=== PATIENT | female | born 1975 | race Caucasian/White ===

== ENCOUNTER 2017-02-05 10:18 | Emergency (ER) | payer OTHER ==
[~2017-02-05] VITALS: Ht 170.2 cm; Wt 87.5 kg
[2017-02-05 12:12] VITALS: BP 163/100
== END 2017-02-05 12:12 | disposition home or self-care (01) ==
LOC: ED 10:18
DX: F41.0 Panic disorder [episodic paroxysmal anxiety] (principal); Z88.0 Allergy status to penicillin
CPT/HCPCS: J2060

== ENCOUNTER 2017-05-29 14:17 | Inpatient (IN) | payer OTHER ==
[~2017-05-29] VITALS: Ht 170.2 cm; Wt 80.3 kg
[2017-05-29 14:27] VITALS: Ht 170.2 cm; Wt 80.3 kg
[2017-05-29 15:21] LABS: BASOPHIL % 0.4 % (0-2); PLATELET COUNT 302 x10^3mcL (130-400)
[2017-05-29 15:26] LABS: RED CELL DISTRIBUTION WIDTH 15.9 % (11.5-14.5)
[2017-05-29 15:30] LABS: CALCIUM 8.5 mg/dL (8.5-10.1); CARBON DIOXIDE 24.6 mmol/L (21-32); CHLORIDE SERUM 99 mmol/L (98-107); CREATININE SERUM 0.8 mg/dL (0.6-1.0); GFR1 > 60 mL/min; GLUCOSE SERUM 145 mg/dL (74-106); POTASSIUM SERUM 3.4 mmol/L (3.5-5.1); SODIUM SERUM 138 mmol/L (136-145)
[2017-05-29 15:34] LABS: ALKALINE PHOSPHATASE 105 U/L (46-116); ALT/SGPT 73 U/L (14-59); AST/SGOT 136 U/L (15-37); BILIRUBIN TOTAL 0.6 mg/dL (0.20-1.00); TOTAL PROTEIN, SERUM 7.1 g/dL (6.4-8.2)
[2017-05-29 15:38] LABS: ALBUMIN 3.3 g/dL (3.4-5.0)
[2017-05-29] MEDS ORDERED: LEVO-T25 MCG PO (16:17)
[2017-05-29] MEDS ORDERED: COZAAR100 MG PO (16:18)
[2017-05-29] MEDS ORDERED: CYMBALTA30 M1 PO (16:18)
[2017-05-29 17:40] VITALS: BP 167/102
[2017-05-29 17:44] VITALS: BP 167/102
[2017-05-29 18:16] LABS: MAGNESIUM 1.2 mg/dL (1.8-2.4); PHOSPHOROUS 3.7 mg/dL (2.5-4.9)
[2017-05-29 18:35] LABS: T3 TOTAL 1.23 ng/mL
[2017-05-29 19:00] LABS: FREE T4 0.77 ng/dL (0.76-1.46); T4(THYROXINE) 5.3 ug/dL (4.7-13.3)
[2017-05-29 21:04] VITALS: BP 171/104
[2017-05-29 22:40] LABS: UA SPECIFIC GRAVITY >=1.030 (1.005-1.035); microscopic required? YES; urine erythrocyte NEGATIVE (NEGATIVE)
[2017-05-29 22:49] VITALS: BP 163/101
[2017-05-29 22:52] LABS: AMPHETAMINE QUAL UR NONE DETECTED (NEG <=1000)
[2017-05-30] VITALS (7 sets, daily range): BP systolic 133–157; BP diastolic 77–104
[2017-05-30 09:10] LABS: BASOPHIL % 0.7 % (0-2); PLATELET COUNT 288 x10^3mcL (130-400)
[2017-05-30 09:12] LABS: RED CELL DISTRIBUTION WIDTH 16.1 % (11.5-14.5)
[2017-05-30 09:15] LABS: CALCIUM 7.9 mg/dL (8.5-10.1); CARBON DIOXIDE 25.1 mmol/L (21-32); CHLORIDE SERUM 103 mmol/L (98-107); CHOLESTEROL 188 mg/dL (<200); CREATININE SERUM 0.8 mg/dL (0.6-1.0); GFR1 > 60 mL/min; GLUCOSE SERUM 139 mg/dL (74-106); POTASSIUM SERUM 3.5 mmol/L (3.5-5.1); SODIUM SERUM 138 mmol/L (136-145); TRIGLYCERIDES 94 mg/dL (<150)
[2017-05-30 09:17] LABS: CHOLESTEROL/HDL RATIO 2.1; HDL CHOLESTEROL 89 mg/dL (40-60)
[2017-05-31 06:37] VITALS: BP 146/96
[2017-05-31 07:34] LABS: BASOPHIL % 0.7 % (0-2); PLATELET COUNT 196 x10^3mcL (130-400)
[2017-05-31 07:47] LABS: CALCIUM 8.1 mg/dL (8.5-10.1); CARBON DIOXIDE 25.9 mmol/L (21-32); CHLORIDE SERUM 109 mmol/L (98-107); CREATININE SERUM 0.6 mg/dL (0.6-1.0); GFR1 > 60 mL/min; GLUCOSE SERUM 86 mg/dL (74-106); MAGNESIUM 1.5 mg/dL (1.8-2.4); PHOSPHOROUS 3.5 mg/dL (2.5-4.9); POTASSIUM SERUM 3.8 mmol/L (3.5-5.1); SODIUM SERUM 142 mmol/L (136-145)
[2017-05-31 08:01] LABS: RED CELL DISTRIBUTION WIDTH 15.5 % (11.5-14.5)
[2017-05-31 10:07] VITALS: BP 131/78
[2017-05-31 10:45] VITALS: BP 131/78
[2017-05-31] MEDS ORDERED: DULOXETINE HYDR60 MG PO (13:10)
== END 2017-05-31 18:22 | disposition home or self-care (01) | DRG 48 ==
LOC: ED 14:17 → DU 16:17
PROVIDERS: Emergency Medicine; Family Medicine; Student in an Organized Health Care Education/Training Program
DX: G90.8 Other disorders of autonomic nervous system (principal); J96.00 Acute respiratory failure, unspecified whether with hypoxia or hypercapnia; N17.0 Acute kidney failure with tubular necrosis; E43 Unspecified severe protein-calorie malnutrition; G61.0 Guillain-Barre syndrome; D75.1 Secondary polycythemia; E87.1 Hypo-osmolality and hyponatremia; E86.0 Dehydration; E83.51 Hypocalcemia; I10 Essential (primary) hypertension; Z88.0 Allergy status to penicillin; E03.9 Hypothyroidism, unspecified; Z90.49 Acquired absence of other specified parts of digestive tract; E87.6 Hypokalemia; I16.0 Hypertensive urgency; G62.9 Polyneuropathy, unspecified; E80.6 Other disorders of bilirubin metabolism; E78.5 Hyperlipidemia, unspecified; A08.4 Viral intestinal infection, unspecified
CPT/HCPCS: 83880; 84439; J0360; J1885; J7030; Q0092

== ENCOUNTER 2017-06-24 08:52 | Emergency (ER) | payer OTHER ==
[~2017-06-24] VITALS: Ht 170.2 cm; Wt 81.9 kg
[~2017-06-24 08:52] MED LIST: COZAAR100 MG PO; CYMBALTA30 M1 PO; DULOXETINE HYDR60 MG PO; LEVO-T25 MCG PO
[2017-06-24 09:06] VITALS: Ht 170.2 cm; Wt 81.9 kg
[2017-06-24 10:37] LABS: BASOPHIL % 0.2 % (0-2); PLATELET COUNT 200 x10^3mcL (130-400)
[2017-06-24 10:41] LABS: RED CELL DISTRIBUTION WIDTH 15.4 % (11.5-14.5)
[2017-06-24 10:54] LABS: CALCIUM 8.6 mg/dL (8.5-10.1); CARBON DIOXIDE 28.2 mmol/L (21-32); CHLORIDE SERUM 101 mmol/L (98-107); CREATININE SERUM 0.8 mg/dL (0.6-1.0); GFR1 > 60 mL/min; GLUCOSE SERUM 145 mg/dL (74-106); POTASSIUM SERUM 3.9 mmol/L (3.5-5.1); SODIUM SERUM 140 mmol/L (136-145)
[2017-06-24 10:58] LABS: ALBUMIN 3.7 g/dL (3.4-5.0); ALKALINE PHOSPHATASE 96 U/L (46-116); ALT/SGPT 51 U/L (14-59); AMYLASE 25 U/L (25-115); AST/SGOT 77 U/L (15-37); BILIRUBIN TOTAL 0.9 mg/dL (0.20-1.00); LIPASE 86 IU/L (73-393); TOTAL PROTEIN, SERUM 7.7 g/dL (6.4-8.2)
[2017-06-24 11:41] VITALS: BP 142/116
== END 2017-06-24 11:46 | disposition home or self-care (01) ==
LOC: ED 08:52
PROVIDERS: Emergency Medicine
DX: R10.9 Unspecified abdominal pain (principal); R11.2 Nausea with vomiting, unspecified; R19.7 Diarrhea, unspecified; Z90.49 Acquired absence of other specified parts of digestive tract; Z88.0 Allergy status to penicillin; Z90.89 Acquired absence of other organs
CPT/HCPCS: 83880; J1885; J2060; J7030

== ENCOUNTER 2017-10-02 07:31 | Inpatient (IN) | payer OTHER ==
[~2017-10-02] VITALS: Ht 170.2 cm; Wt 92.2 kg
[2017-10-02 07:54] VITALS: Ht 170.2 cm; Wt 92.2 kg
[2017-10-02 09:22] LABS: CALCIUM 7.8 mg/dL (8.5-10.1); CARBON DIOXIDE 20.2 mmol/L (21-32); CHLORIDE SERUM 95 mmol/L (98-107); CREATININE SERUM 0.8 mg/dL (0.6-1.0); GFR1 > 60 mL/min; GLUCOSE SERUM 78 mg/dL (74-106); POTASSIUM SERUM 3.4 mmol/L (3.5-5.1); SODIUM SERUM 133 mmol/L (136-145)
[2017-10-02 09:34] LABS: ALKALINE PHOSPHATASE 468 U/L (46-116); ALT/SGPT 207 U/L (14-59); AST/SGOT 733 U/L (15-37); CHOLESTEROL 154 mg/dL (<200); LIPASE 87 IU/L (73-393); MAGNESIUM 1.5 mg/dL (1.8-2.4)
[2017-10-02 09:42] LABS: ALBUMIN 1.9 g/dL (3.4-5.0); TOTAL PROTEIN, SERUM 6.1 g/dL (6.4-8.2)
[2017-10-02 09:45] LABS: AMYLASE 15 U/L (25-115); BILIRUBIN TOTAL 13.5 mg/dL (0.20-1.00); HDL CHOLESTEROL 7 mg/dL (40-60); T4(THYROXINE) 4.4 ug/dL (4.7-13.3)
[2017-10-02 09:51] LABS: BASOPHIL % 0.5 % (0-2); PLATELET COUNT 146 x10^3mcL (130-400)
[2017-10-02 09:52] LABS: RED CELL DISTRIBUTION WIDTH 16.4 % (11.5-14.5)
[2017-10-02 10:41] LABS: UA SPECIFIC GRAVITY 1.025 (1.005-1.035); microscopic required? YES; urine erythrocyte TRACE (NEGATIVE)
[2017-10-02 11:19] LABS: AMPHETAMINE QUAL UR NONE DETECTED (NEG <=1000)
[2017-10-02] MEDS ORDERED: PROTONIX40 MG PO (11:40)
[2017-10-02 12:13] LABS: CHOLESTEROL 160 mg/dL (<200); CHOLESTEROL/HDL RATIO 22.9; HDL CHOLESTEROL 7 mg/dL (40-60); PHOSPHOROUS 2.9 mg/dL (2.5-4.9); TRIGLYCERIDES 472 mg/dL (<150)
[2017-10-02 12:23] LABS: T3 TOTAL 0.37 ng/mL
[2017-10-02 12:26] LABS: FREE T4 1.22 ng/dL (0.76-1.46); FREE THYROXINE INDEX 2.2 ug/dL (1.4-4.5); T4(THYROXINE) 5.2 ug/dL (4.7-13.3)
[2017-10-02 13:22] VITALS: BP 132/82
[2017-10-02 14:03] VITALS: BP 124/84
[2017-10-02 17:05] VITALS: BP 97/57
[2017-10-02 21:00] VITALS: BP 112/63
[2017-10-02 22:13] LABS: BILIRUBIN DIRECT 11.27 mg/dL (0.0-0.2)
[2017-10-02 22:15] LABS: BILIRUBIN TOTAL 13.1 mg/dL (0.20-1.00)
[2017-10-03 05:45] VITALS: BP 114/69
[2017-10-03 05:58] LABS: MAGNESIUM 2.1 mg/dL (1.8-2.4); PHOSPHOROUS 3.3 mg/dL (2.5-4.9)
[2017-10-03 06:08] LABS: ALKALINE PHOSPHATASE 374 U/L (46-116); ALT/SGPT 160 U/L (14-59); AST/SGOT 565 U/L (15-37); CALCIUM 7.4 mg/dL (8.5-10.1); CARBON DIOXIDE 25.7 mmol/L (21-32); CHLORIDE SERUM 97 mmol/L (98-107); CREATININE SERUM 0.9 mg/dL (0.6-1.0); GFR1 > 60 mL/min; GLUCOSE SERUM 70 mg/dL (74-106); POTASSIUM SERUM 4.3 mmol/L (3.5-5.1); SODIUM SERUM 135 mmol/L (136-145)
[2017-10-03 06:25] LABS: ALBUMIN 1.7 g/dL (3.4-5.0); TOTAL PROTEIN, SERUM 4.8 g/dL (6.4-8.2)
[2017-10-03 06:27] LABS: BILIRUBIN TOTAL 13.1 mg/dL (0.20-1.00)
[2017-10-03 07:11] LABS: BASOPHIL % 3.3 % (0-2); PLATELET COUNT 126 x10^3mcL (130-400); RED CELL DISTRIBUTION WIDTH 16.7 % (11.5-14.5)
[2017-10-03 08:23] VITALS: BP 96/55
[2017-10-03 08:45] VITALS: BP 101/59
[2017-10-03 11:27] VITALS: BP 114/68
[2017-10-03 16:47] VITALS: BP 110/60
[2017-10-03 21:21] VITALS: BP 102/63
[2017-10-04 05:20] VITALS: BP 104/60
[2017-10-04 06:22] LABS: BASOPHIL % 0.3 % (0-2)
[2017-10-04 06:26] LABS: CALCIUM 7.5 mg/dL (8.5-10.1); CARBON DIOXIDE 25.6 mmol/L (21-32); CHLORIDE SERUM 102 mmol/L (98-107); CREATININE SERUM 0.9 mg/dL (0.6-1.0); GFR1 > 60 mL/min; GLUCOSE SERUM 63 mg/dL (74-106); PHOSPHOROUS 2.4 mg/dL (2.5-4.9); POTASSIUM SERUM 3.4 mmol/L (3.5-5.1); SODIUM SERUM 134 mmol/L (136-145)
[2017-10-04 06:44] LABS: PLATELET COUNT 120 x10^3mcL (130-400); RED CELL DISTRIBUTION WIDTH 16.3 % (11.5-14.5)
[2017-10-04 08:06] LABS: BILIRUBIN DIRECT 11.66 mg/dL (0.0-0.2)
[2017-10-04 08:17] LABS: ALBUMIN 1.5 g/dL (3.4-5.0); TOTAL PROTEIN, SERUM 4.7 g/dL (6.4-8.2)
[2017-10-04 08:18] LABS: BILIRUBIN TOTAL 13.71 mg/dL (0.20-1.00)
[2017-10-04 08:24] VITALS: BP 95/57
[2017-10-04 12:21] VITALS: BP 102/64
[2017-10-04 16:30] VITALS: BP 105/72
[2017-10-04 20:42] VITALS: BP 104/65
[2017-10-05 04:29] VITALS: BP 113/78
[2017-10-05 06:25] LABS: BASOPHIL % 0.5 % (0-2)
[2017-10-05 06:41] LABS: ALKALINE PHOSPHATASE 325 U/L (46-116); ALT/SGPT 134 U/L (14-59); AST/SGOT 408 U/L (15-37); CALCIUM 7.7 mg/dL (8.5-10.1); CARBON DIOXIDE 24.3 mmol/L (21-32); CHLORIDE SERUM 105 mmol/L (98-107); CREATININE SERUM 0.8 mg/dL (0.6-1.0); GFR1 > 60 mL/min; GLUCOSE SERUM 66 mg/dL (74-106); POTASSIUM SERUM 4.4 mmol/L (3.5-5.1); SODIUM SERUM 138 mmol/L (136-145)
[2017-10-05 07:12] LABS: PLATELET COUNT 96 x10^3mcL (130-400)
[2017-10-05 07:31] LABS: ALBUMIN 1.4 g/dL (3.4-5.0); TOTAL PROTEIN, SERUM 4.8 g/dL (6.4-8.2)
[2017-10-05 07:32] LABS: BILIRUBIN TOTAL 15.5 mg/dL (0.20-1.00)
[2017-10-05 08:49] VITALS: BP 96/50
[2017-10-05 13:51] VITALS: BP 112/76
[2017-10-05 17:05] VITALS: BP 127/86
[2017-10-05 20:34] VITALS: BP 97/63
[2017-10-06 04:33] VITALS: BP 103/71
[2017-10-06 06:43] LABS: ALKALINE PHOSPHATASE 344 U/L (46-116); ALT/SGPT 138 U/L (14-59); AST/SGOT 336 U/L (15-37); CARBON DIOXIDE 25.8 mmol/L (21-32); CHLORIDE SERUM 103 mmol/L (98-107); GFR1 > 60 mL/min; GLUCOSE SERUM 135 mg/dL (74-106); PHOSPHOROUS 2.7 mg/dL (2.5-4.9); POTASSIUM SERUM 3.8 mmol/L (3.5-5.1); SODIUM SERUM 138 mmol/L (136-145)
[2017-10-06 06:49] LABS: ALBUMIN 1.5 g/dL (3.4-5.0); TOTAL PROTEIN, SERUM 5.2 g/dL (6.4-8.2)
[2017-10-06 06:51] LABS: BILIRUBIN TOTAL 17.5 mg/dL (0.20-1.00)
[2017-10-06 07:53] LABS: PLATELET COUNT 135 x10^3mcL (130-400)
[2017-10-06 08:22] VITALS: BP 121/83
[2017-10-06 08:51] LABS: BAND NEUTROPHIL 4 % (0-10); BASOPHIL 0 % (0-2); MONOCYTE 4 % (0-7); SEGMENTED NEUTROPHILS 77 % (37-75)
[2017-10-06 08:52] LABS: PLATELET MORPHOLOGY PLATELETS DECREASED; rbc morphology (normal/abnorm) ABNORMAL (NORMAL)
[2017-10-06 12:00] VITALS: BP 120/83
[2017-10-06 16:45] VITALS: BP 113/92
[2017-10-06 19:57] VITALS: BP 111/78
[2017-10-07 04:50] VITALS: BP 128/91
[2017-10-07 06:22] LABS: CARBON DIOXIDE 22.8 mmol/L (21-32); CREATININE SERUM 1.9 mg/dL (0.6-1.0); PHOSPHOROUS 3.3 mg/dL (2.5-4.9); POTASSIUM SERUM 3.5 mmol/L (3.5-5.1)
[2017-10-07 06:53] LABS: ALBUMIN 1.4 g/dL (3.4-5.0); TOTAL PROTEIN, SERUM 4.9 g/dL (6.4-8.2)
[2017-10-07 06:55] LABS: BILIRUBIN TOTAL 16.84 mg/dL (0.20-1.00)
[2017-10-07 07:10] LABS: PLATELET COUNT 138 x10^3mcL (130-400)
[2017-10-07 07:28] LABS: BASOPHIL % 0 % (0-2); RED CELL DISTRIBUTION WIDTH 17.1 % (11.5-14.5)
[2017-10-07 09:30] VITALS: BP 118/89
[2017-10-07 13:25] VITALS: BP 123/85
[2017-10-07 16:16] VITALS: BP 101/65
[2017-10-07 20:08] VITALS: BP 115/80
[2017-10-08 05:17] VITALS: BP 115/80
[2017-10-08 06:29] LABS: BASOPHIL % 0.1 % (0-2); PLATELET COUNT 153 x10^3mcL (130-400)
[2017-10-08 06:42] LABS: CALCIUM 7.8 mg/dL (8.5-10.1); CARBON DIOXIDE 22.3 mmol/L (21-32); CREATININE SERUM 1.6 mg/dL (0.6-1.0); POTASSIUM SERUM 3.4 mmol/L (3.5-5.1)
[2017-10-08 06:46] LABS: ALBUMIN 1.3 g/dL (3.4-5.0); BILIRUBIN TOTAL 15.71 mg/dL (0.20-1.00); TOTAL PROTEIN, SERUM 4.4 g/dL (6.4-8.2)
[2017-10-08 06:50] LABS: RED CELL DISTRIBUTION WIDTH 17.8 % (11.5-14.5)
[2017-10-08] MEDS ORDERED: XIFAXAN550 M1 PO (07:37)
[2017-10-08] MEDS ORDERED: PROZ10 PO (07:38)
[2017-10-08] MEDS ORDERED: ALD25 PO (07:38)
[2017-10-08] MEDS ORDERED: LAC30L PO (07:39)
[2017-10-08] MEDS ORDERED: LASIX40 MG PO (07:40)
[2017-10-08] MEDS ORDERED: PREDNISONE10 M1 PO (07:44)
[2017-10-08 08:15] VITALS: BP 120/88
[2017-10-08 11:15] VITALS: BP 120/88
[2017-10-08 12:00] VITALS: BP 122/91
[2017-10-08] MEDS ORDERED: FOL1 PO (13:17)
[2017-10-08] MEDS ORDERED: MULTI-VITAMINS1 TAB PO (13:18)
[2017-10-08] MEDS ORDERED: THI100 PO (13:18)
== END 2017-10-08 16:30 | disposition home health service (06) | DRG 279 ==
LOC: ED 07:31 → DU 10:50
PROVIDERS: Emergency Medicine; Family Medicine
DX: K72.90 Hepatic failure, unspecified without coma (principal); N17.0 Acute kidney failure with tubular necrosis; E43 Unspecified severe protein-calorie malnutrition; G92 Toxic encephalopathy; E87.8 Other disorders of electrolyte and fluid balance, not elsewhere classified; E86.0 Dehydration; N39.0 Urinary tract infection, site not specified; K70.30 Alcoholic cirrhosis of liver without ascites; E87.1 Hypo-osmolality and hyponatremia; I10 Essential (primary) hypertension; E03.9 Hypothyroidism, unspecified; F32.9 Major depressive disorder, single episode, unspecified; F41.1 Generalized anxiety disorder; F17.210 Nicotine dependence, cigarettes, uncomplicated; R74.0 Nonspecific elevation of levels of transaminase and lactic acid dehydrogenase [LDH]; R31.9 Hematuria, unspecified; K21.9 Gastro-esophageal reflux disease without esophagitis; E78.5 Hyperlipidemia, unspecified; E66.9 Obesity, unspecified; E87.6 Hypokalemia; E83.42 Hypomagnesemia; Z53.29 Procedure and treatment not carried out because of patient's decision for other reasons; K76.0 Fatty (change of) liver, not elsewhere classified; Y90.5 Blood alcohol level of 100-119 mg/100 ml; Z90.49 Acquired absence of other specified parts of digestive tract; Z88.0 Allergy status to penicillin; Z71.6 Tobacco abuse counseling; Z79.899 Other long term (current) drug therapy; Z83.3 Family history of diabetes mellitus; Z83.49 Family history of other endocrine, nutritional and metabolic diseases; Z68.31 Body mass index [BMI] 31.0-31.9, adult
CPT/HCPCS: 83880; 84439; 87046; 87046-59; 97110-GP; 97116-GP; 97530-GP; 97535-GP; 99406; G0480; J0132; J1200; J1610; J1885; J1940; J1956; J2060; J2250; J2310; J2930; J3010; J3475; J3480; J3490; J7030; J7040; J7042; J7510; P9047; Q0092; Q9967